=== PATIENT | female | born 1990 | race American Indian/Alaskan Native ===

== ENCOUNTER 2018-03-25 08:34 | Emergency (ER) | payer MEDICAID ==
[2018-03-25] MEDS ORDERED: ZOFRAN ODT ONE (08:55)
[2018-03-25] MEDS ORDERED: ZOFRAN ODT PO ONE (08:59)
[2018-03-25 09:56] LABS: Basophils % (Auto) 0.2 % (0.0-1.8); Eosinophils # (Auto) 0.1 K/mm3 (0.0-0.4); Hematocrit 45.5 % (30.3-42.9); Hemoglobin 15.1 gm/dl (10.1-14.3); Lymphocytes # (Auto) 1.4 K/mm3 (1.2-5.4); Lymphocytes % (Auto) 14.5 % (13.4-35.0); Mean Corpuscular HGB Conc 33 % (30-34); Mean Corpuscular Hemoglobin 30 pg (28-32); Mean Corpuscular Volume 89 fl (79-97); Monocytes # (Auto) 0.5 K/mm3 (0.0-0.8); Monocytes % (Auto) 5.2 % (0.0-7.3); Platelet Count 175 K/mm3 (140-440)
[2018-03-25] MEDS ORDERED: NACL 0.9% 1000 ML 1,000 ML IV ONE (10:06)
[2018-03-25] MEDS ORDERED: ZOFRAN IV ONE ×2 (10:06→15:00)
--- NOTE | 2018-03-25 10:09 | Emergency Department Report ---
Chief Complaint: Abdominal Pain Stated Complaint: ABDOMINAL PAIN/VOMITING Time Seen by Provider: 03/25/18 10:03 - HPI History of Present Illness: 27-year-old I[place]ian female presents to the emergency department with complaint of a 2-3 day history of lower abdominal discomfort, nausea, vomiting and diarrhea. The diarrhea has since stopped but she still has copious nausea and vomiting. She also started to have some vaginal bleeding. Her last menstrual cycle was on 02/27/18 and she says it lasts 5 days. She has some back pain associated with her current symptoms. No fever, no vaginal discharge or dysuria. No recent travel or sick contacts at home. She has not taken anything for her symptoms prior to presentation. - ROS Review of Systems: Positive for abdominal pain, back pain, nausea, vomiting and vaginal bleeding Negative for fever, dysuria, vaginal discharge, chest pain or shortness of breath - Exam Vital Signs: Vital Signs 03/25/18 08:51 Temperature 98.5 F Pulse Rate 96 H Respiratory 22 Rate Blood Pressure 101/88 O2 Sat by Pulse 100 Oximetry Physical Exam: Patient appears uncomfortable. She is holding a emesis bag at the ready. Heart and lungs sounds are normal to auscultation. Mild lower abdominal tenderness to palpation. Normal bowel sounds. MSE screening note: Focused history and physical exam performed. Due to findings the following was ordered: The patient has appropriately ordered labs but only the CBC has come back which is unremarkable. She will be given an IV, Zofran and once the labs are back and we know she is not , some type of pain medication. ED Medical Decision Making - Lab Data Result diagrams: 03/25/18 09:35 ED Disposition for MSE Condition: Stable Instructions: Abdominal Pain (ED) Referrals: PRIMARY CARE, [Primary Care Provider] - 3-5 Days
[2018-03-25 10:25] LABS: Alanine Aminotransferase 24 units/L (7-56); BUN/Creatinine Ratio 18; Blood Urea Nitrogen 18 mg/dL (7-17); Calcium 10.2 mg/dL (8.4-10.2); Hemolysis Index 35
--- NOTE | 2018-03-25 11:53 | Emergency Department Report ---
ED Abdominal Pain HPI - General Chief Complaint: Abdominal Pain Stated Complaint: ABDOMINAL PAIN/VOMITING Time Seen by Provider: 03/25/18 10:03 Source: patient, family Mode of arrival: Wheelchair Limitations: No Limitations - History of Present Illness Initial Comments: 27-year-old [place] female presents to the emergency department with complaint of a 2-3 day history of lower abdominal discomfort, nausea, vomiting and diarrhea. The diarrhea has since stopped but she still has copious nausea and vomiting. She also started to have some vaginal bleeding. Her last menstrual cycle was on 02/27/18 and she says it lasts 5 days. She has some back pain associated with her current symptoms. No fever, no vaginal discharge or dysuria. No recent travel or sick contacts at home. She has not taken anything for her symptoms prior to presentation. MD Complaint: abdominal pain, other (nausea vomiting and diarrhea) Onset/Timin -: days(s) Location: suprapubic Radiation: none Migration to: no migration Severity: severe Severity scale (0 -10): 10 Quality: cramping, stabbing, sharp Consistency: constant Improves With: nothing Worsens With: nothing Context: other (unsure) Associated Symptoms: nausea, vomiting, diarrhea, other (menses, back pain). denies: fever, chills, constipation, dysuria, hematemesis, hematochezia, melena , hematuria, anorexia, syncope Treatments Prior to Arrival: other (none) - Related Data LMP Date: 02/27/18 Previous Rx's Medication Instructions Recorded Last Taken Type HYDROcodone/ACETAMINOPHEN [[place] 1 each PO Q6H PRN #12 tablet 03/25/18 Unknown Rx 5-325 Tablet] Ibuprofen [Motrin] 600 mg PO Q8H PRN #15 tablet 03/25/18 Unknown Rx Ondansetron [Zofran Odt] 4 mg PO Q8H PRN #12 tab.rapdis 03/25/18 Unknown Rx Sulfamethoxazole/Trimethoprim 1 each PO BID 10 Days #20 tablet 03/25/18 Unknown Rx [Bactrim DS TAB] Allergies Allergy/AdvReac Type Severity Reaction Status Date / Time No Known Allergies Allergy Unverified 03/25/18 08:55 ED Review of Systems ROS: Stated complaint: ABDOMINAL PAIN/VOMITING Other details as noted in HPI Constitutional: denies: chills, fever Eyes: denies: eye pain, eye discharge, vision change ENT: denies: ear pain, throat pain Respiratory: denies: cough, shortness of breath, wheezing Cardiovascular: denies: chest pain, palpitations, edema, syncope Gastrointestinal: abdominal pain, nausea, vomiting, diarrhea. denies: constipation, hematemesis, melena, hematochezia Genitourinary: denies: urgency, dysuria, frequency, hematuria, discharge Musculoskeletal: back pain. denies: joint swelling, arthralgia Skin: denies: rash, lesions Neurological: denies: headache, weakness Psychiatric: denies: anxiety, depression ED Past Medical Hx - Past Medical History Previous Medical History?: No - Surgical History Past Surgical History?: No - Family History Family history: no significant - Social History Smoking Status: Never Smoker Substance Use Type: None - Medications Home Medications: Home Medications Medication Instructions Recorded Confirmed Last Taken Type HYDROcodone/ACETAMINOPHEN [[place] 1 each PO Q6H PRN #12 tablet 03/25/18 Unknown Rx 5-325 Tablet] Ibuprofen [Motrin] 600 mg PO Q8H PRN #15 tablet 03/25/18 Unknown Rx Ondansetron [Zofran Odt] 4 mg PO Q8H PRN #12 tab.rapdis 03/25/18 Unknown Rx Sulfamethoxazole/Trimethoprim 1 each PO BID 10 Days #20 tablet 03/25/18 Unknown Rx [Bactrim DS TAB] ED Physical Exam - General Limitations: No Limitations General appearance: alert, in no apparent distress - Head Head exam: Present: atraumatic, normocephalic, normal inspection - Eye Eye exam: Present: normal appearance, PERRL, EOMI Pupils: Present: normal accommodation - ENT ENT exam: Present: normal exam, normal orophraynx, mucous membranes moist, TM's normal bilaterally, normal external ear exam - Neck Neck exam: Present: normal inspection, full ROM, other (no C-spine tenderness). Absent: tenderness, lymphadenopathy - Respiratory Respiratory exam: Present: normal lung sounds bilaterally. Absent: respiratory distress, chest wall tenderness, accessory muscle use - Cardiovascular Cardiovascular Exam: Present: regular rate, normal rhythm, normal heart sounds. Absent: systolic murmur, diastolic murmur - GI/Abdominal GI/Abdominal exam: Present: soft, tenderness, normal bowel sounds. Absent: distended, guarding, rebound, rigid, organomegaly, mass, bruit, pulsatile mass, hernia - Extremities Exam Extremities exam: Present: normal inspection, full ROM, normal capillary refill , other (ambulates without any difficulties. No clubbing, cyanosis or edema. + 2 pulses to all extremities.). Absent: tenderness, pedal edema, joint swelling , calf tenderness - Back Exam Back exam: Present: normal inspection, full ROM, tenderness, CVA tenderness (R) . Absent: CVA tenderness (L), muscle spasm, paraspinal tenderness, vertebral tenderness, rash noted - Neurological Exam Neurological exam: Present: alert, oriented X3, normal gait - Psychiatric Psychiatric exam: Present: normal affect, normal mood - Skin Skin exam: Present: warm, dry, intact, normal color. Absent: rash ED Course Vital Signs 03/25/18 03/25/18 08:51 15:02 Temperature 98.5 F 98.5 F Pulse Rate 96 H 58 L Respiratory 22 18 Rate Blood Pressure 101/88 Blood Pressure 127/73 [Right] O2 Sat by Pulse 100 98 Oximetry - Reevaluation(s) Reevaluation #1: 03/25/18 11:58 Patient was screened by Dr. Garcia in order . She received 1 L normal saline, Zofran 4 mg ODT and Zofran 4 mg IV. Nausea has resolved but she says she is having abdominal pain. Patient to receive Maalox and lidocaine by mouth and will give her Toradol 30 mg IV. Still awaiting UA. CBC and CMP stable except for some minor abnormalities. negative. All exam so with tenderness to palpate. Lipase added Reevaluation #2: 03/25/18 13:33 Patient is stable and feeling better. No abdominal tenderness. Reevaluation #3: 03/25/18 14:44 Patient reports that her pain is better. She is stable and in no acute distress. Reevaluation #4: 03/25/18 15:12 Patient still with nausea and vomiting and and was given Reglan 10 mg IV and Zofran 4 mg IV and reevaluated eand better ED Medical Decision Making - Lab Data Result diagrams: 03/25/18 09:35 03/25/18 09:35 Lab Results 03/25/18 03/25/18 03/25/18 Range/Units 09:35 09:35 09:35 WBC 9.8 (4.5-11.0) K/mm3 RBC 5.10 H (3.65-5.03) M/mm3 Hgb 15.1 H (10.1-14.3) gm/dl Hct 45.5 H (30.3-42.9) % MCV 89 (79-97) fl MCH 30 (28-32) pg MCHC 33 (30-34) % RDW 15.0 (13.2-15.2) % Plt Count 175 (140-440) K/mm3 Lymph % (Auto) 14.5 (13.4-35.0) % [place] % (Auto) 5.2 (0.0-7.3) % Eos % (Auto) 1.0 (0.0-4.3) % Baso % (Auto) 0.2 (0.0-1.8) % Lymph # 1.4 (1.2-5.4) K/mm3 [place] # 0.5 (0.0-0.8) K/mm3 Eos # 0.1 (0.0-0.4) K/mm3 Baso # 0.0 (0.0-0.1) K/mm3 Seg Neutrophils % 79.1 H (40.0-70.0) % Seg Neutrophils # 7.8 H (1.8-7.7) K/mm3 Sodium 135 L (137-145) mmol/L Potassium 3.1 L (3.6-5.0) mmol/L Chloride 94.9 L (98-107) mmol/L Carbon Dioxide 16 L (22-30) mmol/L Anion Gap 27 mmol/L BUN 18 H (7-17) mg/dL Creatinine 1.0 (0.7-1.2) mg/dL Estimated GFR > 60 ml/min BUN/Creatinine Ratio 18 % Glucose 124 H (65-100) mg/dL Calcium 10.2 (8.4-10.2) mg/dL Total Bilirubin 0.70 (0.1-1.2) mg/dL AST 35 (5-40) units/L ALT 24 (7-56) units/L Alkaline Phosphatase 46 (35-129) units/L Total Protein 8.4 H (6.3-8.2) g/dL Albumin 5.0 (3.9-5) g/dL Albumin/Globulin Ratio 1.5 % Lipase (13-60) units/L HCG, Quant < 2 (0-4) mIU/mL Urine Color (Yellow) Urine Turbidity (Clear) Urine pH (5.0-7.0) Ur Specific [place] (1.003-1.030) Urine Protein (Negative) mg/dL Urine Glucose (UA) (Negative) mg/dL Urine Ketones (Negative) mg/dL Urine Blood (Negative) Urine Nitrite (Negative) Urine Bilirubin (Negative) Urine Urobilinogen (<2.0) mg/dL Ur Leukocyte Esterase (Negative) Urine WBC (Auto) (0.0-6.0) /HPF Urine RBC (Auto) (0.0-6.0) /HPF U Epithel Cells (Auto) (0-13.0) /HPF Urine Bacteria (Auto) (Negative) /HPF Urine Mucus /HPF 03/25/18 03/25/18 Range/Units 09:35 Unknown WBC (4.5-11.0) K/mm3 RBC (3.65-5.03) M/mm3 Hgb (10.1-14.3) gm/dl Hct (30.3-42.9) % MCV (79-97) fl MCH (28-32) pg MCHC (30-34) % RDW (13.2-15.2) % Plt Count (140-440) K/mm3 Lymph % (Auto) (13.4-35.0) % [place] % (Auto) (0.0-7.3) % Eos % (Auto) (0.0-4.3) % Baso % (Auto) (0.0-1.8) % Lymph # (1.2-5.4) K/mm3 [place] # (0.0-0.8) K/mm3 Eos # (0.0-0.4) K/mm3 Baso # (0.0-0.1) K/mm3 Seg Neutrophils % (40.0-70.0) % Seg Neutrophils # (1.8-7.7) K/mm3 Sodium (137-145) mmol/L Potassium (3.6-5.0) mmol/L Chloride (98-107) mmol/L Carbon Dioxide (22-30) mmol/L Anion Gap mmol/L BUN (7-17) mg/dL Creatinine (0.7-1.2) mg/dL Estimated GFR ml/min BUN/Creatinine Ratio % Glucose (65-100) mg/dL Calcium (8.4-10.2) mg/dL Total Bilirubin (0.1-1.2) mg/dL AST (5-40) units/L ALT (7-56) units/L Alkaline Phosphatase (35-129) units/L Total Protein (6.3-8.2) g/dL Albumin (3.9-5) g/dL Albumin/Globulin Ratio % Lipase 20 (13-60) units/L HCG, Quant (0-4) mIU/mL Urine Color Red (Yellow) Urine Turbidity Clear (Clear) Urine pH 6.0 (5.0-7.0) Ur Specific [place] 1.029 (1.003-1.030) Urine Protein >500 (Negative) mg/dL Urine Glucose (UA) 50 (Negative) mg/dL Urine Ketones 80 (Negative) mg/dL Urine Blood Lg (Negative) Urine Nitrite Pos (Negative) Urine Bilirubin Neg (Negative) Urine Urobilinogen < 2.0 (<2.0) mg/dL Ur Leukocyte Esterase Mod (Negative) Urine WBC (Auto) > 182.0 H (0.0-6.0) /HPF Urine RBC (Auto) > 182.0 (0.0-6.0) /HPF U Epithel Cells (Auto) 5.0 (0-13.0) /HPF Urine Bacteria (Auto) 2+ (Negative) /HPF Urine Mucus 3+ /HPF Urine culture sent and pending - Radiology Data Radiology results: report reviewed CT scan of the abdomen and pelvis with IV contrast reveals a 3 mm right renal stone and per radiologist there are no hydronephrosis. Stone is located and kidney. No ureteral stone. Patient also with 3.9 cm ovarian cyst, right - Medical Decision Making ED course 27 Yo her with complaints of NVD, lower back and abdominal pain x 3 days.She also reports blood in her urine. Patient seen and evaluated by myself and Dr. Garcia. She is now stable. Labs reviews, Ct scan dictated bty radiologist and reviewed by jacqueline and . Results of ct scan findings and labs findings explained to patient and she voiced understanding Labs: CBC, CMP HCG UA UA CX reviewed and abbormailties noted CT scan of the abdomen and pelvis with IV contrast reveals a 3 mm right renal stone and per radiologist there are no hydronephrosis. Stone is located and kidney. No ureteral stone. Patient also with 3.9 cm ovarian cyst, right Clinical Impression: - Hypokalemia with K 3.1- stable. patient encouraged to eat potassium rich foods and she agreed. -Calculus of right kidney- per CT scan Referral to Urologist -Right ovarian cyst,- Per CT scan referral to OBGYN -Acute cystitis with hematuria-IV Roceohin 1gm x1, Bactrim DS 1 x1 dose, UA with positive findings, CX sent -Abdominal pain-resolved with Toradol 30 mg IV, maalox 30 cc and lidocail 15 cc po -Left low back painI resolved with pain meds above -Nausea & vomiting- Resolved with ns x 1 liter, Zofran 4 mg po and 4mg iv x 2 doses, reglan 10 mg iv. Po challenged and tolerated oral liquid well. Prescription for Motrin, zofran, bactrim DS and norco referral to OBGYN,UROLOGIST and PCP Patient instructed to increase her fluid intake, take nausea medication prior to eat in, Educated on medication, treatment plan, diagnosis and voiced understanding. instructed to eat bananas and cantaloupes maintain stable potassium Pt instructed to return to ED if symptoms worsen such as nausea vomiting, diarrhea , back pain, difficulty urinating or abdominal pain, return back to emergency room as was possible.. She voiced understanding of discharge instructions. VSS afeb - Differential Diagnosis Colitis, Gastroenteritis, apendicitis, Calculus, UTI, enteritis Critical care attestation.: If time is entered above; I have spent that time in minutes in the direct care of this critically ill patient, excluding procedure time. ED Disposition Clinical Impression: Calculus of right kidney, Right ovarian cyst, Acute cystitis with hematuria Abdominal pain Qualifiers: Abdominal location: lower abdomen, unspecified Qualified Code(s): R10.30 - Lower abdominal pain, unspecified Left low back pain Qualifiers: Chronicity: acute Sciatica presence: without sciatica Qualified Code(s): M54.5 - Low back pain Nausea & vomiting Qualifiers: Vomiting type: unspecified Vomiting Intractability: non-intractable Qualified Code(s): R11.2 - Nausea with vomiting, unspecified Hematuria Qualifiers: Hematuria type: gross Qualified Code(s): R31.0 - Gross hematuria Disposition: DC-01 TO HOME OR SELFCARE Is pt being admited?: No Does the pt Need Aspirin: No Condition: Stable Instructions: Ovarian Cyst (ED), Kidney Stones (ED), Urinary Tract Infection in Women (ED), Renal Colic (ED), Acute Hematuria (ED), Abdominal Pain (ED), Flank Pain (ED) Additional Instructions: Please follow up urologist as instructed regarding in right kidney stone Take Antibiotic as prescribed Please do not drive or operate machinery while taking narcotic medication causes drowsiness Increase her fluid intake to 2-3 L of water/cranberry juice/Gatorade daily. Follow up with [facility] regarding right ovarian cyst. ` Prescriptions: HYDROcodone/ACETAMINOPHEN [[place] 5-325 Tablet] 1 each PO Q6H PRN #12 tablet PRN Reason: moderate to severe pain Ibuprofen [Motrin] 600 mg PO Q8H PRN #15 tablet PRN Reason: Pain, Mild (1-3) Ondansetron [Zofran Odt] 4 mg PO Q8H PRN #12 tab.rapdis PRN Reason: Nausea And Vomiting Sulfamethoxazole/Trimethoprim [Bactrim DS TAB] 1 each PO BID 10 Days #20 tablet Referrals: PRIMARY CARE, [Primary Care Provider] - 2-3 Days [facility] [Provider Group] - 2-3 Days [facility] [Outside] - 2-3 Days [facility] [Provider Group] - 2-3 Days Forms: Accompanied Note, Work/School Release Form(ED), AMA Form
[2018-03-25] MEDS ORDERED: LIDOCAINE VISCOUS 2% PO ONE (11:55)
[2018-03-25] MEDS ORDERED: ALUM-MAG HYDROX-SIMETH 200-200-20MG/5ML PO ONE (11:55)
[2018-03-25] MEDS ORDERED: TORADOL IV ONE (12:00)
[2018-03-25 13:04] LABS: Bacteria,Urine 2+ /HPF (Negative); Bilirubin,Urine NEG (Negative); Blood,Urine LG (Negative); Color,Urine Red (Yellow); Mucus,Urine 3+ /HPF; Urobilinogen,Urine < 2.0 mg/dL (<2.0)
[2018-03-25 13:06] LABS: Protein,Urine >500 mg/dL (Negative); RBC,Urine > 182.0 /HPF (0.0-6.0); WBC,Urine > 182.0 /HPF (0.0-6.0)
[2018-03-25] MEDS ORDERED: BACTRIM DS PO ONE (14:59)
[2018-03-25 15:03] VITALS: BP 127/73
[2018-03-25] MEDS ORDERED: REGLAN IV ONE (15:03)
[2018-03-25] MEDS ORDERED: cefTRIAXone 1 GM in NACL 0.9% 20 ML IV ONE (15:44)
--- NOTE | 2018-03-27 12:58 | Cat Scan Report ---
CT ABDOMEN PELVIS WITH CONTRAST: HISTORY: Hematuria. COMPARISON: none. TECHNIQUE: Helical CT in 1.25mm intervals following IV contrast. Sagittal and coronal reconstructions. FINDINGS: Lung bases: Normal. Liver: Normal. Biliary system: Normal. Pancreas: Normal. Spleen: Normal. Kidneys/ureters/bladder: A solitary 3 mm calyceal stone is identified at the inferior pole of the right kidney. No hydronephrosis or ureteral stones are identified. The kidneys, ureters and bladder are unremarkable otherwise. Adrenal glands: Normal. Aorta: Normal. Intestines: Normal. Appendix: Normal. Pelvic viscera: A 3.9 cm right ovarian cyst is identified. The uterus and left ovary are unremarkable. Ascites: None. Adenopathy: None. Musculoskeletal: Normal. IMPRESSION: 3 mm right renal stone, nonobstructing. 3.9 cm right ovarian cyst.
== END 2018-03-25 16:31 | disposition home or self-care (01) ==
LOC: ED 08:34
DX: N20.0 Calculus of kidney (principal); N83.201 Unspecified ovarian cyst, right side; N30.01 Acute cystitis with hematuria; M54.5 Low back pain; R31.9 Hematuria, unspecified
CPT/HCPCS: 36415; 74177; 80053; 81001; 83690; 84702; 85025; 96361; 96374; 96375; 96376; 99284; J0696; J1885; J2405; J2765; J7030; Q9967; Q0162